=== PATIENT | female | born 1975 ===

== ENCOUNTER 2018-08-29 10:18 | Inpatient (IN) | payer MEDICAID ==
[2018-08-06 11:14] LABS: HEMATOCRIT 36.9 % (37.0-47.0); HEMOGLOBIN 12.1 G/DL (12.0-16.0); MEAN CORPUSCULAR VOLUME 87 FL (80-99); PLATELET COUNT 204 K/UL (150-450); RED BLOOD COUNT 4.22 M/UL (4.20-5.40); RED CELL DISTRIBUTION WIDTH 15.6 % (11.6-14.8)
[2018-08-06 11:25] LABS: ANION GAP 10 mmol/L (5-15); BLOOD UREA NITROGEN 12 mg/dL (7-18); CALCIUM 8.6 MG/DL (8.5-10.1); CARBON DIOXIDE 24 MMOL/L (21-32); CHLORIDE 108 MMOL/L (98-107); CREATININE 0.6 MG/DL (0.55-1.30); POTASSIUM 4.5 MMOL/L (3.5-5.1); SODIUM 142 MMOL/L (136-145)
[2018-08-06 11:41] LABS: APPEARANCE,URINE SLIGHTLY CLOUDY; BILIRUBIN, URINE NEGATIVE (NEGATIVE); COLOR,URINE PALE YELLOW; GLUCOSE, URINE (UA) NEGATIVE (NEGATIVE); KETONES,URINE NEGATIVE (NEGATIVE); LEUKOCYTE ESTERASE ,URINE 3+ (NEGATIVE); NITRITE,URINE NEGATIVE (NEGATIVE); PH,URINE 5 (4.5-8.0); PROTEIN,URINE NEGATIVE (NEGATIVE); UROBILINOGEN,URINE NORMAL MG/DL (0.0-1.0)
--- NOTE | 2018-08-07 18:43 | Cardiology Report ---
APPROVED REPORT EKG Measurement Heart [id number] Normal sinus rhythm Normal ECG
--- NOTE | 2018-08-27 11:15 | Pre-op HX & Phy Repo 2 SIG ---
DATE OF ADMISSION: 08/29/2018 SCHEDULED FOR SURGERY: August 29, 2018. HISTORY OF PRESENT ILLNESS: The patient is a 43-year-old female in overall stable health, who presented in December 2017 with a mass in her left breast lower outer quadrant with core biopsy revealing poorly differentiated ductal carcinoma and ductal carcinoma in situ. She was estrogen and progesterone receptor positive, HER2-negative. She had an enlarged axillary lymph node. She was seen by Oncology and treated with neoadjuvant chemotherapy. The mass was described as being at 5 o'clock in the left breast 3 cm from the nipple measuring 2.7 x 2.4 x 2.1 cm with followup ultrasound in March showing a decrease in size to 1.4 x 1.4 x 1.5 cm. There is a 4.2 cm abnormal axillary lymph node. The patient is scheduled to undergo left breast partial mastectomy with left axillary lymph node dissection. PAST MEDICAL HISTORY/MEDICATIONS: Enalapril maleate 10 mg daily, levothyroxine 50 mcg daily, losartan 25 mg daily, simvastatin 10 mg daily, topiramate 100 mg, Zofran p.r.n., Compazine, and rectal suppository p.r.n. ALLERGIES TO MEDICATIONS: None. OPERATIONS: None. PHYSICAL EXAMINATION: GENERAL: The patient is 5 feet 3 inches, 216 pounds. HEENT: Within normal limits. LUNGS: Clear. HEART: Regular rhythm. BREASTS: Breasts are large. Right breast is unremarkable. The left breast has a 1 cm mass in the lower outer quadrant, 3 cm from the nipple. There is no palpable axillary or supraclavicular lymphadenopathy. ABDOMEN: Soft. PELVIC AND RECTAL: Per primary care. EXTREMITIES: Without edema. NEUROLOGIC: Physiologic. IMPRESSION: Left breast ductal carcinoma, invasive, status post neoadjuvant chemotherapy. PLAN: Full discussion has been had with the patient regarding the nature of her condition, the nature of the surgery, indications, alternatives, options, and risks including bleeding, infection, need for additional surgery based on final pathology reports, need for additional treatment based on final pathology, scarring, distortion of the breast and the nipple, etc. All questions have been answered, the patient understands and agrees to proceed. Faustino Garcia M.D. DR: DEBRA JOB#: [id number] CC: RUTH
[2018-08-29] VITALS (13 sets, daily range): BP systolic 111–145; BP diastolic 64–96
[~2018-08-29] VITALS: Ht 160 cm; Wt 97.5 kg
[2018-08-29] MEDS ORDERED: SIMVASTATIN10 MG ORAL (10:22)
[2018-08-29] MEDS ORDERED: LOSARTAN POTASS25 MG ORAL (10:22)
[2018-08-29] MEDS ORDERED: ZOFRAN ODT8 MG ORAL (10:22)
[2018-08-29] MEDS ORDERED: rectal suppository RECTAL (10:22)
[2018-08-29] MEDS ORDERED: TOPIRAMATE100 MG ORAL (10:22)
[2018-08-29] MEDS ORDERED: PROCHLORPERAZINE5 MG ORAL (10:22)
[2018-08-29] MEDS ORDERED: ENALAPRIL MALEA10 MG ORAL (10:22)
[2018-08-29] MEDS ORDERED: SYNTHROID50 MCG ORAL (10:22)
[2018-08-29] MEDS ORDERED: Lidocaine 1% 10mg/ml/Epi 0.005mg/ml 30ml vial INJ ONE (10:37)
[2018-08-29] MEDS ORDERED: Bacitracin 50000 Units Vial ONE (10:38)
[2018-08-29] MEDS ORDERED: Bupivacaine w/Epi 0.5% 30ml Vial INJ ONE (10:38)
[2018-08-29] MEDS ORDERED: Ketorolac 30mg Inj ONE (10:42)
[2018-08-29] MEDS ORDERED: Propofol 200mg/20ml IV ONE (10:42)
[2018-08-29] MEDS ORDERED: Midazolam 2mg/2ml Inj ONE (10:42)
[2018-08-29] MEDS ORDERED: fentaNYL 100 mcg/2 mL IV ONE (10:42)
[2018-08-29] MEDS ORDERED: Lidocaine 1% MPF 10mg/ml 5ml ONE (10:42)
[2018-08-29 10:44] LABS: APPEARANCE,URINE CLEAR; BILIRUBIN, URINE NEGATIVE (NEGATIVE); COLOR,URINE PALE YELLOW; GLUCOSE, URINE (UA) NEGATIVE (NEGATIVE); KETONES,URINE NEGATIVE (NEGATIVE); LEUKOCYTE ESTERASE ,URINE 2+ (NEGATIVE); NITRITE,URINE NEGATIVE (NEGATIVE); PH,URINE 5 (4.5-8.0); PROTEIN,URINE NEGATIVE (NEGATIVE); UROBILINOGEN,URINE NORMAL MG/DL (0.0-1.0)
[2018-08-29] MEDS ORDERED: Succinylcholine 20mg/ml 10ml vial ONE (10:52)
[2018-08-29] MEDS ORDERED: Zemuron 50mg/5ml Inj IV ONE (10:52)
--- NOTE | 2018-08-29 10:54 | Pre-Procedure Note/Attestation ---
Pre-Procedure Note/Attestation Complete Prior to Procedure Planned Procedure: left Procedure Narrative: left breast partial mastectomy with left axillary lymph node dissection Attestation I attest that I discussed the nature of the procedure; its benefits; risks and complications; and alternatives (and the risks and benefits of such alternatives ), prior to the procedure, with the patient (or the patient's legal underwriting account representative). I attest that, if there was a reasonable possibility of needing a blood transfusion, the patient (or the patient's legal underwriting account representative) was given the [facility] standardized written summary, pursuant to the [place] Blood Safety Act ([place] Health and Safety Code # 1645, as amended). I attest that I re-evaluated the patient just prior to the surgery and that there has been no change in the patient's H&P, except as documented below: none Faustino Garcia MD Aug 29, 2018 10:54
--- NOTE | 2018-08-29 10:55 | NUR ---
IV LR WAS STARTED BY MARY NOEL RN. NO S/S OF INFILTRAION.
[2018-08-29] MEDS ORDERED: Sterile Water Irrig 1000ml IRRIG ONE (11:00)
[2018-08-29] MEDS ORDERED: LR 1000ml ONE (11:00)
[2018-08-29] MEDS ORDERED: NS Irrig 1000ml ONE (11:00)
[2018-08-29 11:16] LABS: HEMATOCRIT 39.1 % (37.0-47.0); HEMOGLOBIN 12.7 G/DL (12.0-16.0); MEAN CORPUSCULAR VOLUME 87 FL (80-99); PLATELET COUNT 258 K/UL (150-450); RED BLOOD COUNT 4.51 M/UL (4.20-5.40); RED CELL DISTRIBUTION WIDTH 15.5 % (11.6-14.8); WHITE BLOOD COUNT 2.5 K/UL (4.8-10.8)
[2018-08-29 11:30] LABS: ANION GAP 10 mmol/L (5-15); BLOOD UREA NITROGEN 10 mg/dL (7-18); CARBON DIOXIDE 24 MMOL/L (21-32); CHLORIDE 106 MMOL/L (98-107); CREATININE 0.7 MG/DL (0.55-1.30); POTASSIUM 4.2 MMOL/L (3.5-5.1); SODIUM 140 MMOL/L (136-145)
[2018-08-29] MEDS ORDERED: Labetalol 5mg/ml 20ml vial IV ONE (12:06)
[2018-08-29] MEDS ORDERED: Sodium Chloride 10ml vial INJ ONE (12:06)
[2018-08-29] MEDS ORDERED: Glycopyrrolate 0.2mg/ml 1ml Vial ONE (12:06)
[2018-08-29] MEDS ORDERED: Morphine Sulfate 10mg/ml Inj ONE (12:06)
--- NOTE | 2018-08-29 12:15 | Anethesia Preoperative Eval ---
Anesthesia Pre-op PMH/ROS General Date of Evaluation: Aug 29, 2018 Time of Evaluation: 11:10 Anesthesiologist: Usha ASA Score: ASA 3 Mallampati Score Class I : Soft palate, uvula, fauces, pillars visible Class II: Soft palate, uvula, fauces visible Class III: Soft palate, base of uvula visible Class IV: Only hard plate visible Mallampati Classification: Class III Surgeon: Jose Diagnosis: L breast CA Surgical Procedure: Partial mastectomy with axillary l/n dissection Family History: no anesthesia problems Allergies: Coded Allergies: No Known Allergies (Unverified , 08/29/18) Medications: see eMAR Patient NPO?: Yes NPO Date: Aug 28, 2018 NPO Time: 2199 Past Medical History Cardiovascular: Reports: HTN; Denies: CAD, [place], valve dz, arrhythmia, other Pulmonary: Reports: CECILLE; Denies: asthma, COPD, other Gastrointestinal/Genitourinary: Reports: GERD; Denies: CRI, ESRD, other Neurologic/Psychiatric: Denies: dementia, CVA, depression/anxiety, TIA, other Endocrine: Reports: hypothyroidism; Denies: DM, steroids, other HEENT: Denies: cataract (L), cataract (R), glaucoma, [place] (L), [place] (R), other Hematology/Immune: Denies: anemia, DVT, bleeding disorder, other Musculoskeletal/Integumentary: Denies: OA, RA, DJD, DDD, edema, other Other: obesity PMH Narrative: as above PSxH Narrative: . infusa port placement Anesthesia Pre-op Phys. Exam Physician Exam Last Vital Signs Date Time Temp Pulse Resp B/P (MAP) Pulse Ox O2 Delivery O2 Flow Rate FiO2 08/29/18 10:54 98.1 87 20 145/92 (109) 99 08/29/18 10:52 Room Air Constitutional: NAD Neurologic: CN 2-12 intact Cardiovascular: RRR, no M/R/G Respiratory: CTA Gastrointestinal: other - obesity Airway Exam Mallampati Score: Class III MO: limited Neck: short ROM: limited Teeth: missing, broken Dentures: no upper, no lower Anesthesia Pre-op A/P Labs Hematology Test 08/29/18 10:55 White Blood Count 2.5 K/UL (4.8-10.8) L Red Blood Count 4.51 M/UL (4.20-5.40) Hemoglobin 12.7 G/DL (12.0-16.0) Hematocrit 39.1 % (37.0-47.0) Mean Corpuscular Volume 87 FL (80-99) Mean Corpuscular Hemoglobin 28.1 PG (27.0-31.0) Mean Corpuscular Hemoglobin Concent 32.5 G/DL (32.0-36.0) Red Cell Distribution Width 15.5 % (11.6-14.8) H Platelet Count 258 K/UL (150-450) Mean Platelet Volume 6.9 FL (6.5-10.1) Neutrophils (%) (Auto) % (45.0-75.0) Lymphocytes (%) (Auto) % (20.0-45.0) Monocytes (%) (Auto) % (1.0-10.0) Eosinophils (%) (Auto) % (0.0-3.0) Basophils (%) (Auto) % (0.0-2.0) Differential Total Cells Counted 100 Neutrophils % (Manual) 53 % (45-75) Lymphocytes % (Manual) 38 % (20-45) Monocytes % (Manual) 8 % (1-10) Eosinophils % (Manual) 1 % (0-3) Basophils % (Manual) 0 % (0-2) Band Neutrophils 0 % (0-8) Platelet Estimate Adequate Platelet Morphology Normal Anisocytosis 1+ Chemistry Test 08/29/18 10:55 Sodium Level 140 MMOL/L (136-145) Potassium Level 4.2 MMOL/L (3.5-5.1) Chloride Level 106 MMOL/L (98-107) Carbon Dioxide Level 24 MMOL/L (21-32) Anion Gap 10 mmol/L (5-15) Blood Urea Nitrogen 10 mg/dL (7-18) Creatinine 0.7 MG/DL (0.55-1.30) Estimat Glomerular Filtration Rate > 60 mL/min (>60) Glucose Level 104 MG/DL (74-106) Calcium Level 9.0 MG/DL (8.5-10.1) Urine Test Test 08/29/18 10:27 Urine HCG, Qualitative Negative (NEGATIVE) Studies Pre-op Studies: EKG Risk Assessment & Plan Assessment: ASA 3 Plan: GA with ETT Status Change Before Surgery: No Pre-Antibiotics Drug: Ancef 2gr. Given Within 1 Hr of Incision: Yes Time Given: 11:50 Steven Mckay MD Aug 29, 2018 12:15
[2018-08-29] MEDS ORDERED: Hydromorphone 0.5mg/0.5ml inj IVP PRN (12:28)
[2018-08-29] MEDS ORDERED: DiphenhydrAMINE 50mg/ml Inj IVP PRN (12:29)
[2018-08-29] MEDS ORDERED: Metoclopramide 10mg/2ml Inj IVP PRN (12:29)
[2018-08-29] MEDS ORDERED: Ketorolac 30mg Inj IV PRN (12:29)
[2018-08-29] MEDS ORDERED: LR 1000ml 1,000 ML IVLG SCH (12:29)
[2018-08-29] MEDS ORDERED: Meperidine 50mg/ml Inj(FOR RIGORS ONLY) IV PRN (12:30)
--- NOTE | 2018-08-29 13:25 | Immediate Post-Op Evaluation ---
Immediate Post-Op Evalulation Immediate Post-Op Evalulation Procedure: L breast partial mastectomy with axillary l/n dissection Date of Evaluation: Aug 29, 2018 Time of Evaluation: 13:24 IV Fluids: 1000 Blood Products: none Estimated Blood Loss: <50 Urinary Output: none Blood Pressure Systolic: 112 Blood Pressure Diastolic: 64 Pulse Rate: 74 Respiratory Rate: 22 O2 Sat by Pulse Oximetry: 99 Temperature (Fahrenheit): 97.6 Pain Score (1-10): 1 Nausea: No Vomiting: No Complications none Patient Status: reacts, patent, extubated, none Hydration Status: adequate Steven Mckay MD Aug 29, 2018 13:25
--- NOTE | 2018-08-29 13:26 | Brief Operative Note ---
Immediate Post Operative Note Operative Note Pre-op Diagnosis: invasive ductal carcinoma left breast Procedure: left breast partial mastectomy and left axillary lymph node dissection Post-op Diagnosis: same Post-op Diagnosis: same as pre-op Findings: consistent w/pre-op dx studies Surgeon: darren Anesthesiologist: vishal Anesthesia: general Specimen: yes - left breast partial mastectomy; left axillary lymph nodes Complications: none Condition: stable Fluids: see anesthesia record Estimated Blood Loss: minimal Drains: KEVIN Implant(s) used?: No Faustino Garcia MD Aug 29, 2018 13:26
[2018-08-29] MEDS ORDERED: Norco 5mg/325mg tab ORAL PRN (13:30)
[2018-08-29] MEDS ORDERED: HYDROmorphone 1mg/ml Carpuject SUBQ PRN (13:30)
--- NOTE | 2018-08-29 14:40 | NUR ---
NURSE NOTES: PATIENT RECEIVED FROM PACU ON BED. AOX4. LEFT BREAST SURGICAL SITE C/D/I. KEVIN DRAIN INTACT AND SECURED. NO OUTPUT PRESENT. O2 @ 3L NC. SCDS ON. PATIENT DENIES ANY PAIN AT THIS TIME.BED IN LOW AND LOCKED POSITION. BEDSIDE REPORT RECEIVED FROM HEDIS MANAGER. FAMILY AT BEDSIDE. QUESTIONS ANSWERED; NEEDS MET. PT/FAMILY OREINTED TO ROOM. CALL LIGHT WITHIN REACH.
[2018-08-29] MEDS ORDERED: Ondansetron ODT 8mg tab ORAL PRN (15:15)
[2018-08-29] MEDS: ceFAZolin sod 1 GM in D5W 55 ML IV SCH ×2 (18:03→23:31)
[2018-08-29] MEDS: D5 1/2NS w/KCl 20mEq 1,000 ML IV SCH (18:03)
--- NOTE | 2018-08-29 18:41 | NUR ---
NURSE NOTES: PATIENT REMAINS STABLE. TOLERATING SMALL BITES OF REGULAR DIET. NO N/V NOTED. C/O H/A. ADMINISTERED TYLENOL PO. PT. DENIES SURGICAL PAIN AT THIS TIME.VSS. PATIENT ENCOURAGED TO DO I/S INSTRUCTED. RETURN DEMONSTRATION GOOD. CALL LIGHT WITHIN REACH.
--- NOTE | 2018-08-29 18:45 | Operative Note - Dictated ---
DATE OF OPERATION: 08/29/2018 SURGEON: Faustino Garcia M.D. SENIOR ENVIRONMENTAL PRACTICE LEADER: None. ANESTHESIOLOGIST: Steven Mckay M.D. TYPE OF ANESTHESIA: General endotracheal. PREOPERATIVE DIAGNOSIS: Invasive ductal carcinoma, left breast, status post neoadjuvant chemotherapy. POSTOPERATIVE DIAGNOSIS: Invasive ductal carcinoma, left breast, status post neoadjuvant chemotherapy. OPERATION PERFORMED: Left breast partial mastectomy and left axillary lymph node dissection. INDICATIONS: The patient presented with mass in the left breast, lower outer quadrant at 5 o'clock 3 cm from the nipple initially measuring nearly 3 cm. She was ER and [place] receptor positive and her 2-. She had an enlarged axillary lymph node. She was seen by Oncology and treated with neoadjuvant chemotherapy with marked decrease in the nodule. At the time of the surgery, the entire quadrant of breast tissue with the lesion was located was resected and oriented. Pathologist could not definitively find the lesion because of the neoadjuvant chemotherapy. Several abnormal lymph nodes were resected. DESCRIPTION OF PROCEDURE: The patient was taken to the operating room and under general anesthesia with sequential compression device stockings in place and having received intravenous antibiotics, she was prepped and draped in usual fashion. A curvilinear lower outer breast incision was made achieving hemostasis with cautery. Flaps were dissected circumferentially. The entire sector of tissue between 3 and 6 o'clock from underneath the areola towards the periphery of the breast was excised with suture markers placed anterior medial and superior. Hemostasis was achieved with cautery. There were no other palpable or visible abnormalities. Incision was closed with interrupted 3-0 Vicryl and the skin closed with continuous 4-0 Monocryl subcuticular suture. Left axillary transverse incision was made in the clavipectoral fascia incised. Using the Thunderbeat electrocautery device, a lower level lymph node dissection was performed evacuating and removing several abnormal nodes. There was no single enlarged lymph node. The field was irrigated and hemostasis was secured through a separate stab incision inferiorly and laterally. A 19 mm Wm drain was placed into the axilla and sutured to the skin with 2-0 silk suture. The clavipectoral fascia was closed with 3-0 Vicryl, subcutaneous tissue closed with 3-0 Vicryl, and skin closed with continuous 4-0 Monocryl subcuticular suture. Tincture of benzoin half-inch Steri-Strips were applied to both incisions followed by dry sterile dressing. A postsurgical mastectomy type brassiere was applied. The patient tolerated the procedure well and left the operating room in good condition. Faustino Garcia M.D. DR: Geovanny JOB#: [id number] CC:
--- NOTE | 2018-08-29 19:12 | NUR ---
HAND-OFF: Report given to AR CHURCHILL RN.
--- NOTE | 2018-08-29 19:30 | NUR ---
NURSE NOTES: Received report from JACKLYN Mejía. Received pt AOX4, denies pain at this time, no distress noted. Surgical dressing C/D/I. KEVIN inplace. IV patent and intact. IV fluid infusing as ordered. Encouraged pt use IS while awake. Pt verbalized understanding. Bed in lowest position and locked, side rails up x 2, call light within reach. at bedside. Will continue to monitor.
--- NOTE | 2018-08-29 19:36 | NUR ---
CASE MANAGEMENT: INITIAL REVIEW 08/29/2018 43 YO F PRESENTED TO OUR ED CC: LEFT BREAST MASS PMHx: HTN. HLD. BREAST CA. SI:LEFT BREAST CARCINOMA. T 98.1 HR 83 RR 20 B/P 111/64 SATS 100% ON 8L/SIMPLE MASK WBC 3 CL 108 IS: OR MEDS PATIENT ADMITTED TO MED/SURG 08/29/2017 @ 1724 DCP: PATIENT TO BE DISCHARGED TO HOME ONCE MEDICALLY CLEARED. PLAN OF CARE: PREOPERATIVE DIAGNOSIS: Invasive ductal carcinoma, left breast, status post neoadjuvant chemotherapy. POSTOPERATIVE DIAGNOSIS: Invasive ductal carcinoma, left breast, status post neoadjuvant chemotherapy. OPERATION PERFORMED: Left breast partial mastectomy and left axillary lymph node dissection. Addendum: 08/31/18 at 0823 by Norma Desai CM INTERQUAL MET FOR ACUTE
--- NOTE | 2018-08-29 21:00 | NUR ---
NURSE NOTES: Pt ambulated to the restroom with assist, gait steady, voided without difficulty, safely back in bed. No distress noted. Will continue to monitor.
[2018-08-30] VITALS: BP 117/73
[2018-08-30] MEDS: D5 1/2NS w/KCl 20mEq 1,000 ML IV SCH (02:56)
[2018-08-30 04:00] VITALS: BP 111/68
[2018-08-30 06:58] LABS: ANION GAP 8 mmol/L (5-15); BLOOD UREA NITROGEN 6 mg/dL (7-18); CALCIUM 8.4 MG/DL (8.5-10.1); CARBON DIOXIDE 26 MMOL/L (21-32); CHLORIDE 109 MMOL/L (98-107); CREATININE 0.7 MG/DL (0.55-1.30); POTASSIUM 4.1 MMOL/L (3.5-5.1); SODIUM 143 MMOL/L (136-145)
--- NOTE | 2018-08-30 07:36 | NUR ---
HAND-OFF: Report given to JACKLYN Kenney. Pt in stable condition.
--- NOTE | 2018-08-30 07:44 | NUR ---
NURSE NOTES: Received report from Bryan Dias pt a/a/ox4 laying in bed with no signs of distress or other issues at this time. surgical dressing dry and intact. KEVIN drain in place draining well, total shift engineer out put:10ml. IS at the bedside, pt was able to demonstrate back. IV on the Right HERMAN gauge#20 running D5 1/2 NS+20mEq@100ml/hr. sue light with in reach, bed in lowest position, side rales up x2. pt's at the bedside. I will f/u as needed.
[2018-08-30 07:59] LABS: BASOPHILS % (AUTO) 0.4 % (0.0-2.0); EOSINOPHILS % (AUTO) 0.4 % (0.0-3.0); HEMATOCRIT 30.9 % (37.0-47.0); HEMOGLOBIN 10.2 G/DL (12.0-16.0); LYMPHOCYTES % (AUTO) 12.6 % (20.0-45.0); MEAN CORPUSCULAR VOLUME 87 FL (80-99); NEUTROPHILS % (AUTO) 79.6 % (45.0-75.0); PLATELET COUNT 215 K/UL (150-450); RED BLOOD COUNT 3.56 M/UL (4.20-5.40); RED CELL DISTRIBUTION WIDTH 15.7 % (11.6-14.8)
[2018-08-30 08:00] VITALS: BP 140/84
[2018-08-30] MEDS: Losartan 25mg tab ORAL SCH (08:38)
[2018-08-30] MEDS: Topiramate 100mg tab ORAL SCH (08:39)
[2018-08-30] MEDS: Prochlorperazine 10mg tab ORAL SCH (08:39)
[2018-08-30 12:00] VITALS: BP 150/95
--- NOTE | 2018-08-30 14:13 | 48 Hour Post Anesthesia Eval ---
Post Anesthesia Evaluation Procedure: L breast partial mastectomy with axillary l/n dissection Date of Evaluation: Aug 30, 2018 Time of Evaluation: 14:11 Blood Pressure Systolic: 132 0: 56 Pulse Rate: 72 Respiratory Rate: 20 Temperature (Fahrenheit): 97.6 O2 Sat by Pulse Oximetry: 98 Airway: patent Nausea: No Vomiting: No Pain Intensity: 2 Hydration Status: adequate Cardiopulmonary Status: stable Mental Status/LOC: patient returned to baseline Follow-up Care/Observations: n/a Post-Anesthesia Complications: none Follow-up care needed: ready to discharge Steven Mckay MD Aug 30, 2018 14:12
--- NOTE | 2018-08-30 15:55 | General Progress Note ---
Progress Note Progress Note AVSS with mild tachycardia. Pain is moderate but not taking meds. left breast and axilla incisions clean with intact steris. KEVIN 10cc overnight, 15cc today WBC 6000 (was 2500 pre-op) Hgb 10.2 BMP ok Path: 8 negative nodes Imp. Stable Plan: continue IV antibiotics additional day due to pre-op leukopenia teach re care of Faustino Wheeler MD Aug 30, 2018 15:55
[2018-08-30 16:00] VITALS: BP 137/88
[2018-08-30] MEDS: ceFAZolin 1gm in D5W 55ml IVPB SCH (18:43)
[2018-08-30 20:00] VITALS: BP 118/81
--- NOTE | 2018-08-30 20:39 | NUR ---
HAND-OFF: Report given to Chidi RN, pt in stable condition. - RN demonstrate pt and family how to empty and record KEVIN drain. pt and family were able to demonstrate back and verbalized understanding in how to record output. supplies given to patient. I&O's Total KEVIN drain during my shift: 25ml
[2018-08-31] VITALS: BP 115/75
[2018-08-31] MEDS: ceFAZolin 1gm in D5W 55ml IVPB SCH ×2 (00:02→06:03)
[2018-08-31 04:00] VITALS: BP 131/81
--- NOTE | 2018-08-31 07:30 | NUR ---
HAND-OFF: Report given to URBANO VILLASENOR.
[2018-08-31 08:00] VITALS: BP 138/83
--- NOTE | 2018-08-31 08:02 | NUR ---
HAND-OFF: Report given to Received pt from Dharmesh turner RN, pt was eating no acute distress, no pain. daughter is at bedside.
[2018-08-31] MEDS: Losartan 25mg tab ORAL SCH (08:55)
[2018-08-31] MEDS: Prochlorperazine 10mg tab ORAL SCH (08:56)
[2018-08-31] MEDS: Topiramate 100mg tab ORAL SCH (08:56)
--- NOTE | 2018-08-31 10:24 | General Progress Note ---
Progress Note Progress Note AVSS Feels well and not using [place] Left breast and axilla healing nicely with intact steristrips KEVIN 45cc serosang Imp. Doing well Plan; d/c IV antibiotics discharge with supplies and KEVIN drain f/u office 09/03 - call Faustino Mauro MD Aug 31, 2018 10:24
--- NOTE | 2018-08-31 11:38 | NUR ---
CASE MANAGEMENT: NOTE PATIENT TO BE DISCHARGED TO HOME
[2018-08-31 12:00] VITALS: BP 131/89
[2018-08-31] MEDS ORDERED: Tubing IV Secondary IV ONE (13:19)
--- NOTE | 2018-08-31 13:30 | NUR ---
NURSE NOTES: Discharge pt with daughter. D/C instruction was given. Previous right side(08/30) of IV site had better than this morning. decrease swelling. Pt said that feel much better. let pt elevated the arm and apply warm pad. verbalized understanding.
--- NOTE | 2018-09-03 09:49 | Discharge Summary ---
Discharge Summary Hospital Course Date of Admission Aug 29, 2018 at 13:23 Date of Discharge Aug 31, 2018 at 13:20 Admitting Diagnosis Invasive ductal carcinoma, left breast, Reason for Hospitalization: elective surgery HPI Mary Anne Mendosa is a 43 year old female who was admitted on Aug 29, 2018 at 13:23 for invasive ductal carcinoma, left breast, status post neoadjuvant chemotherapy. Patient was admitted for elective surgery. Procedures s/p 08/29/[address] Garcia Left breast partial mastectomy and left axillary lymph node dissection Hospital Course s/p surgery Course of recovery uneventful Pain management addressed, pain controlled KEVIN drain output closely monitored, timothy was taught how to care for KEVIN at home Left breast and axilla with intact Steri-Strips, healing nicely s/p empiric antibiotic due to preoperative leukopenia, leukopenia resolved, afebrile, no signs of infection, antibiotics stopped Ambulated in hallway, fall precaution maintained Started on diet and advanced as tolerated Antiemetic on board as needed, patient was able to tolerate diet Voided freely Bowel regimen instituted Home medication resumed Pathology results back and consistent with ductal carcinoma in situ. Left tissue axilla: 8 lymph nodes negative for metastatic carcinoma Patient was ready for discharge home Discharge instructions and supplies provided Follow-up with surgeon at the office 09/03 FINAL DIAGNOSES Invasive ductal carcinoma, left breast, status post neoadjuvant chemotherapy. s/p Left breast partial mastectomy and left axillary lymph node dissection. Discharge Medications Continued Medications: Enalapril Maleate* (Enalapril Maleate*) 10 Mg Tablet 10 MG ORAL DAILY, TAB (This prescription has been renewed) Levothyroxine Sodium (Synthroid) 50 Mcg Tablet 50 MCG ORAL DAILY, TAB (This prescription has been renewed) Take in the morning on an empty stomach, at least 30 minutes beforefood. Losartan Potassium* (Losartan Potassium*) 25 Mg Tablet 25 MG ORAL DAILY, TAB (This prescription has been renewed) Ondansetron Odt* (Zofran Odt*) 8 Mg Tab.rapdis 8 MG ORAL Q6H PRN for Nausea & Vomiting, #30 TAB (This prescription has been renewed) Prochlorperazine Maleate* (Compazine*) 5 Mg Tablet Unknown Dose ORAL NEEDED, TAB 0 Refills (This prescription has been renewed) [rectal suppository] () Unknown Dose RECTAL NEEDED (This prescription has been renewed) Simvastatin (Zocor) 10 Mg Tablet 10 MG ORAL BEDTIME, TAB (This prescription has been renewed) Topiramate* (Topamax*) 100 Mg Tablet 100 MG ORAL DAILY, #60 TAB 0 Refills (This prescription has been renewed) Discharge Condition Upon Discharge: stable Discharge Disposition Patient was discharged to Home (01) Discharge Instructions Discharge Instructions Special Instructions I have been assigned to complete a D/C Summary on this account. I was not involved in the patient management Shona Thacker NP Sep 03, 2018 09:49
== END 2018-08-31 13:20 | disposition home or self-care (01) | DRG 363 ==
LOC: SDS 10:18 → 3E 13:23
PROC: 07B60ZX Excision of Left Axillary Lymphatic, Open Approach, Diagnostic (ICD-10-PCS; 2018-08-29)
PROC: 0HBU0ZZ Excision of Left Breast, Open Approach (ICD-10-PCS; principal; 2018-08-29 10:00)
DX: C50.512 Malignant neoplasm of lower-outer quadrant of left female breast (principal); Z17.0 Estrogen receptor positive status [ER+]
CPT/HCPCS: 36415; 80048; 81001; 81003; 81025; 85007; 85025; 85610; 85730; 87081; 87086; 93005; J2250; J2405